=== PATIENT | male | born 1985 | race Two or more races ===

== ENCOUNTER 2021-07-14 17:30 | Emergency (ER) | payer SELFPAY ==
[~2021-07-14] VITALS: Ht 167.6 cm; Wt 90.9 kg
[2021-07-14] MEDS ORDERED: DIVA-85 PO (18:50)
[2021-07-14] MEDS ORDERED: TRAZ-252 PO (18:50)
[2021-07-14 20:08] LABS: BASOPHILS % (AUTO) 0.7 % (0.0-2.0); EOSINOPHILS % (AUTO) 2.6 % (1.0-6.0); HEMATOCRIT 41.7 % (41-53); HEMOGLOBIN 13.5 g/dL (13.5-17.5); LYMPHOCYTES # (AUTO) 1.5 K/uL (1.0-4.8); LYMPHOCYTES % (AUTO) 30.1 % (22.0-44.0); MEAN CORPUSCULAR HEMOGLOBIN 32.1 pg (26.0-34.0); MEAN CORPUSCULAR HGB CONC 32.4 G/dL (31.0-37.0); MEAN CORPUSCULAR VOLUME 99 fL (80-100); MONOCYTES # (AUTO) 0.3 K/uL (0.1-1.0); MONOCYTES % (AUTO) 6.1 % (2.0-9.0); NEUTROPHILS % (AUTO) 60.5 % (40.0-70.0); PLATELET COUNT (AUTO) 311 K/uL (150-450); RED BLOOD CELL COUNT(AUTO) 4.21 MIL/uL (4.50-5.90); RED CELL DISTRIBUTION WIDTH 13.3 % (11.5-14.5)
[2021-07-14 20:15] LABS: ANION GAP 9 mmol/L (8-16); CALCIUM, TOTAL 9.3 mg/dL (8.8-10.5); CARBON DIOXIDE 29 mmol/L (22-29); CHLORIDE 107 mmol/L (98-107); GLOMERULAR FILTR. RATE CALC > 60 mL/min (>60); GLUCOSE,RANDOM 92 mg/dL (70-110); SODIUM SERUM 145 mmol/L (136-145); UREA NITROGEN, BLOOD 10 mg/dL (7-18)
[2021-07-14 20:23] LABS: ALANINE AMINOTRANSFERASE 38 U/L (12-78); ALBUMIN 3.8 g/dL (3.4-5.0); ALKALINE PHOSPHATASE 85 U/L (46-116); ASPARTATE AMINOTRANSFERASE 22 U/L (15-37); BILIRUBIN,TOTAL 0.4 mg/dL (0.1-1.0)
[2021-07-14 20:39] LABS: VALPROIC ACID < 3 mcg/mL (50-100)
[2021-07-14 22:34] VITALS: BP 119/75
== END 2021-07-15 02:26 | disposition home or self-care (01) ==
LOC: EMS 17:33
DX: F41.9 Anxiety disorder, unspecified (principal)
CPT/HCPCS: 36415; 80053; 80164; 85025; 99284; G0480

== ENCOUNTER 2021-07-15 04:17 | Emergency (ER) | payer MEDICAID ==
[~2021-07-15] VITALS: Ht 167.6 cm; Wt 90.9 kg
[~2021-07-15 04:17] MED LIST: DIVA-85 PO; TRAZ-252 PO
[2021-07-15 06:30] VITALS: BP 129/76
== END 2021-07-15 07:02 | disposition home or self-care (01) ==
LOC: EMS 04:19
DX: L84 Corns and callosities (principal); F32.A Depression, unspecified; F41.9 Anxiety disorder, unspecified
CPT/HCPCS: 99281; Z7502

== ENCOUNTER 2021-07-15 16:14 | Emergency (ER) | payer MEDICAID ==
[~2021-07-15] VITALS: Ht 167.6 cm; Wt 88.0 kg
[2021-07-15 16:20] VITALS: BP 126/86
== END 2021-07-15 17:27 | disposition home or self-care (01) ==
LOC: EMS 16:14
DX: L84 Corns and callosities (principal); F32.A Depression, unspecified; R44.0 Auditory hallucinations; Z59.00 Homelessness unspecified
CPT/HCPCS: 99283; Z7502